=== PATIENT | male | born 1995 | race Caucasian/White ===

== ENCOUNTER 2018-01-09 14:26 | Emergency (ER) | payer OTHER ==
[~2018-01-09] VITALS: Ht 172.7 cm; Wt 83.9 kg
[2018-01-09 14:31] VITALS: Ht 172.7 cm; Wt 83.9 kg
[2018-01-09 15:53] VITALS: BP 112/78
== END 2018-01-09 16:13 | disposition home or self-care (01) ==
LOC: ED 14:26
DX: K40.90 Unilateral inguinal hernia, without obstruction or gangrene, not specified as recurrent (principal)
CPT/HCPCS: J1885; Q0092